=== PATIENT | male | born 1960 | race Caucasian/White ===

== ENCOUNTER → 2017-02-06 | Outpatient (CLI) | payer OTHER ==
[~2017-02-06] MED LIST: CEFA2PLA9 IV; GLIM1TAB PO; HYDR-3241 PO; LISI-167 PO; METH500T7 PO; METO50TA82 PO; POLY17PO5 PO; TAMS-11 PO
== END | disposition home or self-care (01) ==
LOC: RAD 17:18
PROVIDERS: ATTEND Family Medicine
DX: M48.06 Spinal stenosis, lumbar region (principal); M79.661 Pain in right lower leg; G89.29 Other chronic pain
CPT/HCPCS: 72110